=== PATIENT | male | born 1985 | race Caucasian/White ===

== ENCOUNTER 2020-10-21 09:48 | Emergency (ER) | payer SELFPAY ==
[~2020-10-21] VITALS: Ht 182.9 cm; Wt 74.0 kg
[2020-10-21] MEDS ORDERED: FLEXERIL5 M1 PO (11:27)
[2020-10-21] MEDS ORDERED: MOTRIN800 MG PO (11:27)
[2020-10-21 11:30] VITALS: BP 131/68
== END 2020-10-21 11:38 | disposition home or self-care (01) | DRG 563 ==
LOC: ED 09:48
DX: S39.012A Strain of muscle, fascia and tendon of lower back, initial encounter (principal); F17.210 Nicotine dependence, cigarettes, uncomplicated; V59.40XA Driver of pick-up truck or van injured in collision with unspecified motor vehicles in traffic accident, initial encounter